=== PATIENT | male | born 1960 | race Caucasian/White ===

== ENCOUNTER 2018-06-25 10:38 | Day surgery (SDC) | payer OTHER ==
[2018-06-25] MEDS ORDERED: Famotidine/PF 20 mg/2ml Vial ONE (11:31)
[2018-06-25] MEDS ORDERED: PROPOFOL 200 MG/20 ML VIAL ONE (12:25)
[2018-06-25] MEDS ORDERED: Dexamethasone 20 MG/5 ML VIAL ONE (12:25)
[2018-06-25] MEDS ORDERED: Lidocaine 1% PF 5 ML VIAL ONE (12:25)
[2018-06-25] MEDS ORDERED: Succinylcholine Chloride 20 MG/ML 10 ml SYRINGE FS ONE (12:25)
[2018-06-25] MEDS ORDERED: Thrombin 5000 UNITS/5 ML VIAL ONE (12:47)
[2018-06-25] MEDS ORDERED: Sodium Chloride 0.9% 0 ML ONE (12:47)
[2018-06-25] MEDS ORDERED: Ketamine 50 MG/ML (10ML VIAL) ONE (12:54)
[2018-06-25] MEDS ORDERED: Propofol 500 MG/50 ML VIAL ONE ×3 (12:57→15:33)
[2018-06-25] MEDS ORDERED: Fentanyl 100 MCG/2 ML VIAL ONE ×5 (12:57→17:55)
[2018-06-25] MEDS ORDERED: Midazolam HCl 2 mg/2 ml Vial ONE (13:20)
[2018-06-25] MEDS ORDERED: Lidocaine 2% Jelly 5 ML TUBE ONE (13:29)
[2018-06-25] MEDS ORDERED: HYDROmorphone 2 MG/ML VIAL ONE (17:55)
[2018-06-25] MEDS ORDERED: Ondansetron HCl/PF 4 MG/2 ML Vial IVP PRN (18:24)
[2018-06-25] MEDS ORDERED: Promethazine HCl 25 MG/ML VIAL IM/IV PRN (18:24)
[2018-06-25] MEDS ORDERED: Non-Formulary Medication 1 EACH PO PRN (18:24)
[2018-06-25] MEDS ORDERED: HYDROmorphone 2 MG/ML VIAL SLOW IVP PRN (18:24)
--- NOTE | 2018-06-25 19:06 | RAD ---
CERVICAL SPINE AP AND LATERAL: 06/25/18 HISTORY: ACDF. FINDINGS/IMPRESSION: Four spot fluoroscopic intraoperative images of the cervical spine demonstrate different stages of an terior fusion and placement of plate and screws at C3-4 level. Endotracheal tube is present. POS: JOSE
[2018-06-25] MEDS ORDERED: HYDROcodone/Acetaminophen 5/325 mg Tablet ONE ×2 (20:05→20:06)
--- NOTE | 2018-06-25 22:33 | EKG ---
Test Reason : PREOP Blood Pressure : / mmHG Vent. Rate : 074 BPM Atrial Rate : 074 BPM P-R Int : 126 ms QRS Dur : 088 ms QT Int : 398 ms P-R-T Axes : 064 -33 046 degrees QTc Int : 441 ms Normal sinus rhythm Left axis deviation Abnormal ECG No previous ECGs available Confirmed by Shanthi CRAIG ([id number]) on 06/25/2018 10:33:29 PM Referred By: SURENDRA Confirmed By:Shanthi CRAIG
[2018-06-26] MEDS ORDERED: Amlodipine 10 MG TAB PO SCH (09:00)
[2018-06-26] MEDS ORDERED: FLUoxetine HCl 20 MG CAP PO SCH (09:00)
[2018-06-26] MEDS ORDERED: Lisinopril 10 MG TAB PO SCH (09:00)
== END 2018-06-25 21:00 | disposition home or self-care (01) ==
LOC: SDC 10:38
PROVIDERS: ATTEND Orthopaedic Surgery
PROC: 0RT30ZZ Resection of Cervical Vertebral Disc, Open Approach (ICD-10-PCS; principal; 2018-06-25)
PROC: 0RG10A0 Fusion of Cervical Vertebral Joint with Interbody Fusion Device, Anterior Approach, Anterior Column, Open Approach (ICD-10-PCS; principal; 2018-06-25)
DX: M50.01 Cervical disc disorder with myelopathy, high cervical region (principal); M48.02 Spinal stenosis, cervical region; M40.292 Other kyphosis, cervical region; M25.78 Osteophyte, vertebrae; L40.50 Arthropathic psoriasis, unspecified; Z79.899 Other long term (current) drug therapy; Z88.5 Allergy status to narcotic agent
CPT/HCPCS: 72040; 76000; 93005; 93010; C1713; C1776; J0690; J1100; J1170; J2001; J2250; J2704; J3010; J3490; S0028